=== PATIENT | male | born 1950 | race Caucasian/White ===

== ENCOUNTER 2024-08-22 08:25 | Day surgery (SDC) | payer MEDICARE, BC ==
[2024-08-18 08:31] VITALS: BP 129/75
[~2024-08-22] VITALS: Ht 185.4 cm; Wt 106.8 kg
[~2024-08-22 08:25] MED LIST: ATORVASTATIN CA20 MG PO; AVAPRO75 MG PO; CEFAZOLIN SODIUM 2 GM/20 ML SYR IV SCH; COZAAR25 MG PO; FLOMAX0.4 MG PO; IBLOOD GLUCOSE TEST STRIP 1 EA TEST VI PRN; LACTATED RINGER'S 1,000 ML IV SCH; LIDOCAINE HCL 1% 5 ML SDV INJ ONE
[2024-08-22 09:48] VITALS: BP 133/74
[2024-08-22 10:17] LABS: BASOPHILS 0.7 % (0-2); HEMATOCRIT 45.3 % (35.0-50.0); LYMPHOCYTES 19.2 % (24-44); MCH 33.1 (27-36); MCHC 35.3 g/dl (30-36); MCV 93.9 fl (81-99); MONOCYTES 8.1 % (0-12); PLATELET COUNT 183 K/uL (140-440); RBC 4.82 M/ul (4.3-5.7); RDW 13.1 (10.5-15.0)
[2024-08-22 10:32] LABS: ALBUMIN 3.8 g/dL (3.4-5.0); ALBUMIN/GLOBULIN RATIO 1.12 (1.1-2.4); ANION GAP 12.2 (7-21); BILIRUBIN, TOTAL 0.6 ng/dL (0.2-1.0); BUN/CREATININE RATIO 23.07 (6.0-28.6); CALCIUM 9.1 mg/dL (8.5-10.1); CREATININE, SERUM 0.91 mg/dL (0.70-1.30); POTASSIUM 4.2 mmol/L (3.5-5.1); PROTEIN, TOTAL 7.2 g/dL (6.4-8.2)
[2024-08-22] MEDS ORDERED: propofoL 200 MG/20 ML VIAL ONE ×4 (11:56→14:53)
[2024-08-22] MEDS ORDERED: LIDOCAINE HCL 2% 5 ML SDV ONE (11:57)
[2024-08-22] MEDS ORDERED: BUPIVACAINE 0.75% IN DEXTROSE 2 ML AMP ONE (11:57)
[2024-08-22] MEDS ORDERED: HYDROmorphone HCL 1 MG/ML SYR IV PRN (12:45)
[2024-08-22] MEDS ORDERED: ondansetron HCL 4 MG/2 ML VIAL IV PRN ×2 (12:45→16:15)
[2024-08-22] MEDS ORDERED: diphenhydrAMINE HCL 25 MG CAP PO PRN (12:45)
[2024-08-22] MEDS ORDERED: LACTATED RINGER'S 1,000 ML IV SCH (12:45)
[2024-08-22] MEDS ORDERED: GEL LUBRICATING MULTI-INGRED LARGE TUBE ONE (12:45)
[2024-08-22] MEDS ORDERED: OXYCODONE/APAP 5/325 TAB PO PRN (12:45)
[2024-08-22] MEDS ORDERED: fentaNYL citrate 100 MCG/2 ML VIAL ONE (12:56)
[2024-08-22] MEDS ORDERED: LACTATED RINGER'S 1,000 ML IV ONE (13:18)
[2024-08-22] MEDS ORDERED: ACETAMINOPHEN 1,000 MG/100 ML VIAL ONE (15:47)
[2024-08-22] MEDS ORDERED: ondansetron HCL 4 MG/2 ML VIAL ONE (15:47)
[2024-08-22] MEDS ORDERED: IBLOOD GLUCOSE TEST STRIP 1 EA TEST VI PRN (16:15)
[2024-08-22] MEDS ORDERED: NALOXONE HCL 0.4 MG SYR IV PRN (16:15)
[2024-08-22] MEDS ORDERED: fentaNYL citrate 50 MCG/ML SDV IV PRN (16:15)
[2024-08-22 16:40] VITALS: BP 131/76
--- NOTE | 2024-08-22 16:59 | NUR ---
Pt arrived to the room at about 1635 hours, pt report received from RN Gayla Melara at about 1637 hours. Pt is A&O x4, sensation to his ankles, able to move his legs, but not quite wiggle his toes yet. Pt able to feel me squeeze his right toes, but not as well on his left. Pt has not eaten or drank anything yet and I provided him with iced water, crackers, jello, and a lemon-inupiat soda and encouraged him to eat and drink slowly and to notify staff if he becomes nauseated. Pt verbalizes understanding. IV site is without redness, swelling, pain, or leaking, flushes and has good blood return. Pt oriented to room, call light and remote. Side rails up x4, CBI running at a trickle, output is dark pink, no clots. No pain or nausea at this time.
--- NOTE | 2024-08-22 17:05 | NUR ---
08/22/24 1705 Waleska Moreno 1557 PT ARRIVED IN PACU WIDE AWAKE WITH NO C/O'S. HOLLAND TO CBI WITH RED COLORED DRAINAGE. 1610 SITTING UP IN BED TALKING TO STAFF. 1620 GLASSES RETURNED TO PT. 1637 TO ROOM 112. REPORT GIVEN TO RN. PT'S BELONGINGS IN CLOSET. RN NOTIFIED OF 30ML IN BALLOON FOR HOLLAND.
--- NOTE | 2024-08-22 17:24 | NUR ---
MED REC COMPLETE
[2024-08-22 17:40] VITALS: BP 130/67
--- NOTE | 2024-08-22 17:59 | NUR ---
Pt has tolerated water, lemon wilton soda, crackers and jello with no c/o nausea and is now eating a sandwich. IVF running at ordered rate. Call light in reach.
[2024-08-22 18:38] VITALS: BP 122/63
--- NOTE | 2024-08-22 19:10 | NUR ---
REPORT RECEIVED FROM LAWANDA GRACE. pt RESTING IN THE BED. BOARD UPDATED. CALL LIGHT WITHIN REACH. pt DENIES ANY OTHER NEEDS AT THIS TIME.
[2024-08-22] MEDS ORDERED: DOCUSATE SODIUM 100 MG CAP PO SCH (21:00)
[2024-08-22 21:40] VITALS: BP 148/71
[2024-08-22 21:50] VITALS: BP 148/71
--- NOTE | 2024-08-22 21:51 | NUR ---
ASSESSMENT AND VITAL SIGNS DONE. pt CBI CATHETER NEEDED TO BE FLUSHED WITH 20 ML OF NS DUE TO CLOTS AT THE TIP OF THE CATHETER. CBI FLOWING WNL AFTER FLUSH. pt STATE HE FEELS LIKE HE HAS TO PEE. pt BLADDER SCANNED TO BE SURE. 5 ML IN THE BLADDER. SCHEDULED MEDICATION ADMINISTERED. pt DENIES ANY OTHER NEEDS AT THIS TIME. CALL LIGHT WITHIN REACH.
[2024-08-23 01:29] VITALS: BP 122/67
[2024-08-23 01:30] VITALS: BP 122/67
--- NOTE | 2024-08-23 01:35 | NUR ---
VITAL SIGNS AND ASSESSMENT DONE. pt URINE IS LIGHT PINK TO CLEAR IN THE TUBING. WILL WAIT AND HOUR THEN CHECK AGAIN.
--- NOTE | 2024-08-23 02:45 | NUR ---
IN RM TO CHECK URINE COLOR. pt URINE COLOR IS LIGHT ELLOW IN THE TUBE. CBI CLAMPED PER ORDER. pt DENIES ANY OTHER NEEDS AT THIS TIME. CALL LIGHT WITHIN REACH.
--- NOTE | 2024-08-23 04:05 | NUR ---
IN RM TO CHECK ON pt. pt RESTING WITH EYES CLOSED. RR EVEN AND UNLABORED. URINE IS STILL CLEAR IN THE TUBING WITH LITTLE SETTIMENT IN THE TUBING WELL. CALL LIGHT WITHIN REACH.
[2024-08-23 05:34] VITALS: BP 140/74
[2024-08-23 06:13] VITALS: BP 140/74
--- NOTE | 2024-08-23 06:47 | NUR ---
pt RESTED THROUGH OUT THE NIGHT. CBI CLAMPED IN THE MIDDLE OF THE NIGHT. URINE THE COLOR OF WATERMELON JUICE. URINE CLEAR WITH SEDIMENT IN THE TUBING. NO OTHER CONCERNS AT THIS TIME.
--- NOTE | 2024-08-23 07:18 | NUR ---
REPORT FROM MICHAELA RNGERDA.
[2024-08-23] MEDS ORDERED: LEVOFLOXACIN500 MG PO (08:18)
[2024-08-23] MEDS ORDERED: OXYCODONE HCL5 MG PO (08:19)
[2024-08-23 08:23] VITALS: BP 140/74
--- NOTE | 2024-08-23 08:25 | NUR ---
MORNING ASSESSMENT IS COMPLETE. CBI PLUGGED, PATIENT UP TO BATHROOM WITH SBA TO BM AND DID HAVE A SMALL BM. MORNING DOCUSATE GIVEN, PATIENT REFUSED LOSARTAN, HE HAS A NEW BP MEDICATION AT HOME THAT DR. GOYAL RECENTLY STARTED. URINE IS WATERMELON PINK, PATIENT DENIES PAIN. BLOODY DRAINAGE NOTED AT [facility] AND PATIENT WILL PLACE PETROLEUM JELLY AT SITE FOR COMFORT. IV ROCEPHIN IS INFUSING FOR ONE HOUR AND THEN PATIENT MAY DISCHARGE HOME. PATIENT EDUCATION COMPLETE. PATIENT IS SITTING UP TO CHAIR EATING BREAKFAST.
[2024-08-23] MEDS ORDERED: LOSARTAN POTASSIUM 25 MG TAB PO SCH (09:00)
[2024-08-23] MEDS ORDERED: CEFTRIAXONE/SODIUM CHLORIDE 2 GM/100 ML PIGGYBACK IV SCH (09:00)
[2024-08-23] MEDS ORDERED: FLOMAX0.4 MG PO (09:26)
--- NOTE | 2024-08-23 09:29 | NUR ---
DISCHARGE INSTRUCTIONS GIVEN, SALINE LOCK REMOVED WITH CATHETER INTACT. PHARMACY IN TO EDUCATE PATIENT. PATIENT GIVEN WHEELCHAIR RIDE TO FRONT DOOR.
--- NOTE | 2024-08-29 22:57 | PATH ---
[facility] [address] [facility] [address] [place], [place] [address] Signed SPECIMEN(S): A PROSTATE CHIPS SPECIMEN SOURCE: A. PROSTATE CHIPS CLINICAL HISTORY: BPH with LUTS FINAL PATHOLOGIC DIAGNOSIS: Prostate, transurethral resection: - Fragments of benign prostatic tissue with stromal and glandular hyperplasia consistent with features seen in benign prostatic hyperplasia. - Chronic inflammation. TWK MICROSCOPIC EXAMINATION: Histologic sections of all submitted blocks are examined by light microscopy. These findings, together with the gross examination, support the pathologic diagnosis. GROSS DESCRIPTION: The specimen, labeled and designated "Manjinder Jatin, " and designated on the requisition "prostate chips," is received in formalin is a 34 g, 9.5 x 9.0 x 1.8 cm aggregate of pink-neumann to nj rubbery soft tissue. Approximately 60% of the specimen is submitted in (A1-A12). FB (under the direct supervision of a pathologist) The Gross Description was prepared using a voice recognition system. The report was reviewed for accuracy; however, sound-alike word errors, addition and/or deletions may occur. If there is any question about this report, please contact Client Services. ADDITIONAL NOTES: Immunohistochemical and/or in situ hybridization studies if performed in this case included appropriate positive controls that reacted as expected. This test was developed and its performance characteristics determined by [facility]. It has not been cleared or approved by the U.S. Food and Drug Administration. The FDA has determined that such clearance or approval is not necessary. This test is used for clinical purposes. It should not be regarded as investigational or for research. [facility] is certified under the Clinical Laboratory Improvement PATIENT NAME: NOE WILLIS PATHOLOGY DATE OF : 54 REPORT #: [id number] PHYSICIAN: RODRIGO KINNEY PCP: LILIANA GRANT MD REPORT IS CONFIDENTIAL AND NOT TO BE RELEASED WITHOUT AUTHORIZATION [facility] [address] [place], [place] [address] Signed Amendments of 1988 (CLIA) as qualified to perform high complexity clinical laboratory testing. PERFORMING LABORATORY: Technical component was performed by [facility], [address] [place] [id number] (CLIA# [id number]). Professional interpretation was performed by [facility], [address] [place] [address], [address]st Floor Room [address] [place] [id number] (CLIA#: [id number]). Diagnostician: Frankie Bonilla MD Pathologist Electronically Signed 08/29/2024 Copies: ~ PATIENT NAME: NOE WILLIS PATHOLOGY DATE OF : 54 REPORT #: [id number] PHYSICIAN: RODRIGO KINNEY PCP: LILIANA GRANT MD REPORT IS CONFIDENTIAL AND NOT TO BE RELEASED WITHOUT AUTHORIZATION
== END 2024-08-23 09:32 | disposition home or self-care (01) ==
LOC: DS 08:25 → MS 16:37 → DS 08-23 09:32
PROVIDERS: ATTEND Urology
PROC: 0VB08ZZ Excision of Prostate, Via Natural or Artificial Opening Endoscopic (ICD-10-PCS; principal; 2024-08-22 11:25)
DX: N40.1 Benign prostatic hyperplasia with lower urinary tract symptoms (principal); N32.89 Other specified disorders of bladder
CPT/HCPCS: 00914; 36415; 80053; 85025; 88305; C1769; J0131; J0690; J0696; J2405; J2704; J3010; J7121